=== PATIENT | female | born 1955 | race Caucasian/White ===

== ENCOUNTER 2017-08-05 06:00 | Day surgery (SDC) | payer OTHER ==
[~2017-08-05 06:00] MED LIST: CALAN SR120 MG PO; COLESTIPOL HCL500 GM PO; ZESTORETIC 20-1 EAC1 PO; ZETIA10 MG PO
== END 2017-08-05 12:15 | disposition home or self-care (01) ==
LOC: CIR.AMB 06:00
DX: M65.331 Trigger finger, right middle finger (principal)